=== PATIENT | female | born 2000 | race Caucasian/White ===

== ENCOUNTER 2021-08-09 02:58 | Emergency (ER) | payer OTHER ==
[~2021-08-09 02:58] MED LIST: MOTRIN600 MG PO; SEROQUEL 25MG T25 MG PO
[2021-08-09] MEDS ORDERED: FIORICET1 EACH PO (05:49)
== END 2021-08-09 06:23 | disposition home or self-care (01) ==
LOC: FER 02:58
DX: G43.909 Migraine, unspecified, not intractable, without status migrainosus (principal); J45.909 Unspecified asthma, uncomplicated
CPT/HCPCS: 70450; J0780; J1200; J1885